=== PATIENT | male | born 1945 | race Caucasian/White ===

== ENCOUNTER 2017-02-08 06:14 | Day surgery (SDC) | payer MEDICARE, OTHER ==
[~2017-02-08] VITALS: Ht 182.9 cm; Wt 94.2 kg
[2017-02-08] VITALS (17 sets, daily range): BP systolic 127–157; BP diastolic 76–103; PULSE 68–79; RESP 14–20; TEMP 97–97.8; O2SAT 82–99; Ht 182.9 cm; Wt 94.2 kg
[~2017-02-08 06:14] MED LIST: NAPR220C11 PO; OMEP20CA81 PO
--- OUTSIDE RECORDS SUMMARY | 2017-02-08 06:18 | XMS REPORT | Continuity of Care Document ---
Author Author [facility] Organization [facility] Address Unknown Phone Unavailable Support Name Relationship Address Phone CLARICE CORADO DO Caregiver [facility] [phone] [facility] [address] [place] [phone] JAZZY GUAJARDO Next Of Kin [address] [place] [address] Insurance Providers Payer Name Policy Number Subscriber Name Relationship Medicare [id number] Joseph Guajardo 17 Self [place] [id number] Joseph Guajardo 17 Self Advance Directives Directive Response Recorded Date/Time Ordered Resuscitation Status Full Code, unverified 09/09/14 11:32am Resuscitation Documents on File No 09/09/14 11:07am Problems No known problems or medical conditions. Medications Medication Dose Route Sig Days/Qty Instructions Order Date Discontinued Date Status Omeprazole 20 Mg PO DAILY 12/07/10 Active Naproxen Sodium 220 Mg PO NEEDED 09/09/14 Active Social History Social History Problem Response Recorded Date/Time Chewing Tobacco Status No 09/09/2014 11:05am Hx Substance Use No 09/09/2014 11:05am Hx Alcohol Use No 09/09/2014 11:05am Has the pt used tobacco in the last 12 months No 09/09/2014 11:05am Query Response Start Date Stop Date Smoking Status Never smoker Hospital Discharge Instructions No hospital discharge instructions. Plan of Care No plan of care. Functional Status No functional status results. Allergies, Adverse Reactions, Alerts Allergen Type Severity Reaction Status Last Updated No Known Drug Allergies Allergy Unknown Active 12/07/10 Immunizations Name Given Type Hx Influenza Vaccination No Historical Hx Pneumococcal Vaccination No Historical Hx Influenza Vaccination No Historical Vital Signs Acute Vital Signs Vital Response Date/Time Temperature (Fahrenheit) 96.8 deg F (96.8 - 99.1) Temperature (Calculated Celsius) 36.50519 degrees C (36.0 - 37.3) Temperature Source Temporal Pulse Rate (adult) 64 bpm (60 - 100) Respiratory Rate 14 breaths/min (10 - 20) O2 Sat by Pulse Oximetry 95 % (90 - 100) Oxygen Delivery Method Room Air Blood Pressure 129/81 mm Hg Blood Pressure Source Automatic Cuff Height 5 ft 11 in Weight 201 lb Body Mass Index 28.0 kg/m^2 Results No known relevant diagnostic tests, laboratory data and/or discharge summary. Procedures Procedure Status Date Provider(s) Colonoscopy with polypectomy and biopsy completed 09/10/14 CLARICE CORADO DO
[2017-02-08] MEDS: FLEET PHOSPHO-SODA 133 ML ENEMA RECTALLY PRN ×2 (06:46→06:53)
[2017-02-08] MEDS ORDERED: LR 1,000 ML IV SCH (07:00)
[2017-02-08] MEDS ORDERED: LIDOCAINE 1% (10mg/ml) 2ml SDV INJ ONE (07:00)
[2017-02-08] MEDS ORDERED: SALINE FLUSH 10ml SYRINGE ONE (07:07)
[2017-02-08] MEDS ORDERED: FENTANYL 100mcg/2ml INJECTION ONE (07:23)
[2017-02-08] MEDS ORDERED: MIDAZOLAM 5mg/5ml INJECTION ONE ×2 (07:23→07:43)
[2017-02-08] MEDS ORDERED: MIDAZOLAM 5mg/5ml INJECTION IV PRN (07:24)
[2017-02-08] MEDS ORDERED: FENTANYL 100mcg/2ml INJECTION IV PRN (07:24)
--- NOTE | 2017-02-08 13:59 | OPNOTEF ---
DATE OF OPERATION 02/08/2017 INDICATION History of colon polyps. OPERATION Colonoscopy SURGEON Shaun Rasheed D.O. ASA CLASSIFICATION II Consent signed and on the chart. Prior to the procedure, the patient was brought to the endoscopy lab where a brief review of his medical history and physical exam was performed. The procedure was described to him and he was agreeable to continue. All questions were answered. DESCRIPTION OF OPERATION He was given IV sedation and placed in the left lateral decubitus position. A digital rectal exam was normal. The colonoscope was introduced through the anal verge and advanced to the cecum. Upon reaching the cecum, careful inspection of mucosa was performed. At the level of the cecum, one small polyp was noted and biopsied and removed with the cold forceps biopsy. A second polyp was noted at the transverse colon. It was also removed by cold forceps. One polyp at the splenic flexure biopsied then removed with a snare and also at 30 cm a polyp that was biopsied and then removed with a snare. He tolerated the procedure well. There were no complications. IMPRESSION Polyps at the following locations, all removed: 1. Cecum. 2. Transverse colon. 3. Splenic flexure. 4. 30 cm. RECOMMENDATIONS 1. Review the path report when available. 2. Repeat as indicated. MTDD
== END 2017-02-08 09:03 | disposition home or self-care (01) ==
LOC: NSC 06:14
PROVIDERS: ATTEND Internal Medicine
DX: Z12.11 Encounter for screening for malignant neoplasm of colon (principal); D12.0 Benign neoplasm of cecum; D12.3 Benign neoplasm of transverse colon; D12.6 Benign neoplasm of colon, unspecified; Z86.010 Personal history of colon polyps; Z87.891 Personal history of nicotine dependence; E78.5 Hyperlipidemia, unspecified; R73.01 Impaired fasting glucose; K21.9 Gastro-esophageal reflux disease without esophagitis; Z79.1 Long term (current) use of non-steroidal anti-inflammatories (NSAID); Z79.899 Other long term (current) drug therapy
CPT/HCPCS: 45380; 45385; A9270; J2250; J3010; J7120; 88305